=== PATIENT | male | born 1950 | race Caucasian/White ===

== ENCOUNTER → 2017-01-04 | Outpatient (CLI) | payer MEDICARE, MEDICAID ==
[~2017-01-04] MED LIST: ASPI-587 PO; ATEN25TA; CATHETER FLUSH 10 ML SYR IV PRN; IOHEXOL 350 MG/ML 150 ML (OMNIPAQUE 350) VIAL IV ONE; MULT-608 PO; NS 100 ML (IVPB) BAG IV ONE; SIMV40TA4 PO
[2017-01-04 07:56] LABS: ALANINE AMINOTRANSFERASE 21 U/L (0-55); ALBUMIN 3.9 GM/DL (3.2-4.5); ANION GAP 9 MMOL/L (5-14); ASPARTATE AMINO TRANSFERASE 25 U/L (5-34); BILIRUBIN,TOTAL 1.9 MG/DL (0.1-1.0); BLOOD UREA NITROGEN 24 MG/DL (7-18); BUN/CREATININE RATIO 26; CALCIUM 9.1 MG/DL (8.5-10.1); CARBON DIOXIDE 29 MMOL/L (21-32); CHLORIDE 103 MMOL/L (98-107); CHOLESTEROL 154 MG/DL (< 200); CREATININE SERUM 0.94 MG/DL (0.60-1.30); DIRECT LDL 93 MG/DL (1-129); GFR ESTIMATED > 60; GLUCOSE 92 MG/DL (70-105); POTASSIUM 4.2 MMOL/L (3.6-5.0); SODIUM 141 MMOL/L (135-145); TOTAL PROTEIN 6.6 GM/DL (6.4-8.2); TRIGLYCERIDES 61 MG/DL (<150); VLDL CHOLESTEROL 12 MG/DL (5-40)
--- NOTE | 2017-01-04 13:44 | Diagnostic Imaging Report ---
PROCEDURE: CT angiography of the chest with contrast. TECHNIQUE: Multiple contiguous axial images were obtained through the chest after uneventful bolus administration of intravenous contrast. Reconstructed CTA MIP acquisitions were also performed. INDICATION: Marfan's syndrome, thoracic aortic aneurysm. FINDINGS: The previous CTA chest exam of 07/16/2015 suggested that the aortic root was mildly dilated measuring 4.5 cm in maximum dimension measured perpendicular to the long axis of the aortic root. On this exam, the aortic root measures 4.4 cm. The descending thoracic aorta is normal in caliber, and there is no sign of an injury to the aorta. There is no defect within the pulmonary arteries to indicate a pulmonary embolus either. The heart size is within normal limits and stable when compared to the prior exam. The previous exam did note a 5 mm noncalcified nodule in the left lower lobe. That finding is again visualized and does not seem to have changed significantly (image [id number]). The lungs are otherwise clear. There is no sign of failure, pneumonia, or of a pleural effusion to suggest an acute abnormality. There are mild chronic changes involving the lungs including scar formation in both lung apices. There is no mediastinal or hilar adenopathy. The thyroid gland is unremarkable. The sections through the upper abdomen again show that the appearance of the liver suggests fatty metamorphosis. There are a few small low-density areas within the liver. The largest of these is in the dome of the right lobe of the liver and measures approximately 0.9 x 0.9 cm. This area of low density does seem more prominent than noted on the previous CTA chest exam of 06/09/2014. I suspect that this is a benign nodule, but I would recommend that ultrasound of the liver be performed for further study. The spleen, kidneys, aorta, and inferior vena cava are unremarkable for an acute abnormality. The bone windows again show that there is dextroscoliosis of the lower thoracic spine. There is no acute bony abnormality appreciated. IMPRESSION: 1. The aortic root remains slightly dilated but essentially no different than on the prior exam. 2. There is no acute cardiopulmonary abnormality identified. In particular, there is no sign of a dissection of the aorta or of a pulmonary embolus. 3. The small nodule in the left lung base seen previously is again evident and no different. 4. The low-density area in the right lobe of the liver is most likely a benign nodule. Ultrasound would be recommend for further evaluation. Dictated by: Dictated on workstation # [id number]
== END ==
LOC: RAD 07:21
PROVIDERS: ATTEND Physician Assistant
DX: I25.10 Atherosclerotic heart disease of native coronary artery without angina pectoris (principal); I50.1 Left ventricular failure, unspecified; I71.2 Thoracic aortic aneurysm, without rupture; Q87.410 Marfan syndrome with aortic dilation
CPT/HCPCS: 36415; 71275; 80053; 80061; 82565; 84520

== ENCOUNTER → 2017-07-28 | Outpatient (CLI) | payer MEDICARE, MEDICAID ==
[~2017-07-28] MED LIST changes: -CATHETER FLUSH 10 ML SYR IV PRN; -IOHEXOL 350 MG/ML 150 ML (OMNIPAQUE 350) VIAL IV ONE; -NS 100 ML (IVPB) BAG IV ONE
== END ==
LOC: CARD 09:06
PROVIDERS: ATTEND Physician Assistant
DX: I25.10 Atherosclerotic heart disease of native coronary artery without angina pectoris (principal); E78.5 Hyperlipidemia, unspecified; Q87.410 Marfan syndrome with aortic dilation; I71.2 Thoracic aortic aneurysm, without rupture
CPT/HCPCS: 93306

== ENCOUNTER → 2018-07-13 | Outpatient (CLI) | payer MEDICARE, MEDICAID ==
[2018-07-13 07:37] LABS: CHOLESTEROL 150 MG/DL (< 200); HDL CHOLESTEROL 49 MG/DL (40-60); TRIGLYCERIDES 79 MG/DL (<150); VLDL CHOLESTEROL 16 MG/DL (5-40)
[2018-07-13 11:31] LABS: ALANINE AMINOTRANSFERASE 17 U/L (0-55); ALBUMIN 4.1 GM/DL (3.2-4.5); ALKALINE PHOSPHATASE 58 U/L (40-136); BILIRUBIN,TOTAL 1.6 MG/DL (0.1-1.0); BUN/CREATININE RATIO 20; CALCIUM 9.5 MG/DL (8.5-10.1); CARBON DIOXIDE 22 MMOL/L (21-32); CHLORIDE 107 MMOL/L (98-107); CREATININE SERUM 0.94 MG/DL (0.60-1.30); GFR ESTIMATED > 60; GLUCOSE 91 MG/DL (70-105); POTASSIUM 4.1 MMOL/L (3.6-5.0); SODIUM 140 MMOL/L (135-145); TOTAL PROTEIN 6.7 GM/DL (6.4-8.2)
== END ==
LOC: LAB 07:06
PROVIDERS: ATTEND Internal Medicine Cardiovascular Disease
DX: I25.10 Atherosclerotic heart disease of native coronary artery without angina pectoris (principal); I50.9 Heart failure, unspecified; E78.5 Hyperlipidemia, unspecified; I71.2 Thoracic aortic aneurysm, without rupture; Q87.410 Marfan syndrome with aortic dilation
CPT/HCPCS: 36415; 80053; 80061

== ENCOUNTER → 2019-07-19 | Outpatient (CLI) | payer MEDICARE, MEDICAID ==
[~2019-07-19] MED LIST changes: -ATEN25TA; +ATEN25TA PO; +CETI10TA21 PO; +CHOL100045 PO
[2019-07-19 07:56] LABS: ALANINE AMINOTRANSFERASE 14 U/L (0-55); ALBUMIN 4.1 GM/DL (3.2-4.5); ALKALINE PHOSPHATASE 59 U/L (40-136); BILIRUBIN,TOTAL 1.8 MG/DL (0.1-1.0); BUN/CREATININE RATIO 15; CALCIUM 9.3 MG/DL (8.5-10.1); CARBON DIOXIDE 29 MMOL/L (21-32); CHLORIDE 103 MMOL/L (98-107); CHOLESTEROL 140 MG/DL (< 200); GFR ESTIMATED > 60; GLUCOSE 79 MG/DL (70-105); HDL CHOLESTEROL 51 MG/DL (40-60); POTASSIUM 4.2 MMOL/L (3.6-5.0); SODIUM 141 MMOL/L (135-145); TOTAL PROTEIN 6.5 GM/DL (6.4-8.2); TRIGLYCERIDES 64 MG/DL (<150); VLDL CHOLESTEROL 13 MG/DL (5-40)
== END ==
LOC: LAB 07:28
PROVIDERS: ATTEND Physician Assistant
DX: I25.10 Atherosclerotic heart disease of native coronary artery without angina pectoris (principal); E78.5 Hyperlipidemia, unspecified
CPT/HCPCS: 36415; 80053; 80061

== ENCOUNTER 2019-09-06 07:10 | Outpatient (CLI) | payer MEDICARE, MEDICAID ==
[~2019-09-06] VITALS: Ht 194 cm; Wt 61.0 kg
[2019-09-06] MEDS ORDERED: SIMV40TA25 PO (11:01)
[2019-09-06] MEDS ORDERED: ASPI-999 PO (11:01)
[2019-09-06] MEDS ORDERED: CHOL500049 PO (11:01)
[2019-09-06] MEDS ORDERED: DOCU100T7 PO (11:01)
[2019-09-06] MEDS ORDERED: MTP25TSR PO (11:14)
== END 2019-09-06 15:14 ==
LOC: PREOP 07:10 → EDSTATUS 10:00 → PREOP 15:14
PROVIDERS: ATTEND Surgery
DX: Z01.818 Encounter for other preprocedural examination (principal); Z11.59 Encounter for screening for other viral diseases
CPT/HCPCS: 87635

== ENCOUNTER 2019-09-11 07:06 | Day surgery (SDC) | payer MEDICARE, MEDICAID ==
[~2019-09-11] VITALS: Ht 194 cm; Wt 61.0 kg
[2019-09-11] VITALS (11 sets, daily range): BP systolic 101–126; BP diastolic 58–79
[~2019-09-11 07:06] MED LIST changes: +ASPI-999 PO; +CHOL500049 PO; +DOCU100T7 PO; +MTP25TSR PO; +SIMV40TA25 PO
[2019-09-11] MEDS ORDERED: ceFAZolin 2 GM IV Premixed 50 ML IV ONE (07:45)
[2019-09-11] MEDS ORDERED: CATHETER FLUSH 10 ML SYR IV PRN (08:00)
[2019-09-11] MEDS ORDERED: BUP/EPI 0.5% 1:200,000 (SENSORCAINE) 30 ML VIAL ONE ×2 (08:07→09:25)
[2019-09-11] MEDS: LACTATED RINGERS 1,000 ML IV PRN ×2 (08:18→09:34)
[2019-09-11] MEDS ORDERED: SEVOFLURANE (ULTANE) 15 ML INHAL SOLN ONE ×5 (08:38→10:23)
[2019-09-11] MEDS ORDERED: ONDANSETRON 4 MG/2 ML (SDV) Z0FRAN ONE (08:38)
[2019-09-11] MEDS ORDERED: proPOfol 200 MG/20 ML (DIPRIVAN) VIAL IV ONE (08:38)
[2019-09-11] MEDS ORDERED: LIDOCAINE PF 2% 5 ML (XYLOCAINE) VIAL ONE (08:38)
[2019-09-11] MEDS ORDERED: ROCURONIUM 10 MG/ML 5 ML SYRINGE IV ONE (08:38)
[2019-09-11] MEDS ORDERED: MIDAZOLAM 2 MG/2 ML (VERSED) VIAL ONE (08:38)
[2019-09-11] MEDS ORDERED: DEXAMETHASONE 10 MG/ML (DECADRON) 1 ML VIAL ONE (08:38)
[2019-09-11] MEDS ORDERED: fentaNYL INJECTION 100 MCG/2 ML AMP ONE (08:39)
--- NOTE | 2019-09-11 10:16 | Progress Note-Post Operative ---
Post-Operative Progess Note Surgeon (s)/Supervisor Plate Pasting (s) Surgeon FROILAN CARTER DO Supervisor Plate Pasting: Ric Pre-Operative Diagnosis BILATERAL INGUINAL HERNIAS Post-Operative Diagnosis Same plus Left cord lipoma Procedure & Operative Findings Date of Procedure 09/11/19 Procedure Performed/Findings PROCEDURE: 1. Open [bilateral] direct inguinal hernia repair. 2. Excision of Left cord lipoma COMPLICATIONS: None. INDICATIONS: The patient is a 69 , male with Bilateral inguinal hernias. He understands risks and benefits of procedure and wished to proceed with procedure. Consent was signed in the chart. DESCRIPTION OF PROCEDURE: The patient was taken to the operating suite, was prepped and draped in sterile fashion. Surgical pause was performed. Local anesthetic was infiltrated to perform ilio-inguinal nerve blocks (bilaterally), a suprapubic block and then infiltrated in left and right inguinal area where incision would be made. Next used a #15 blade scalpel was used to make a skin incision in the Left lower quadrant. Cautery was used to dissect down the external oblique, which was then infiltrated with local and opened down through the external ring with cautery. The spermatic cord was then dissected around. Claunch drain was placed around it and was retracted out of the way in the lateral direction. No indirect hernia present; there was however a direct defect present. Also found a cord lipoma which was carefully taken off with bovie electrocautery. Carefully pealed the sac off the cord and contents were reduced. The transversalis fascia was then sutured to the shelving edge of Poupard's ligament using 2-0 Vicryl figure of eight suture and then another single interrupted suture. A ProGrip mesh was then cut to size, which was then secured to Rashaun's ligament and then incorporated around the spermatic cord in the usual fashion and placed under the external oblique. The wound was then irrigated with copious amounts of irrigation. The external oblique was then closed using 3-0 Vicryl in running fashion recreating the external ring. The subcutaneous tissue was then reapproximated with 3-0 Vicryl and the skin was then closed using 4-0 Monocryl in a running subcuticular fashion. The exact same procedure was then performed on the right side; again a Direct hernia was found but no cord lipoma. Once this side was done, we then washed the area and dried it. Skin Affix was placed over the incisions. The patient tolerated procedure well without any complications and was taken to the recovery room in stable condition. Sponge, instrument and needle count were correct at the end of the case. Dr. Larios helped in this case making incisions, closing incisions, identifying anatomy and helping get anatomy out of the way. Anesthesia Type GET Estimated Blood Loss Estimated blood loss (mL): scant Specimens/Packing Specimens Removed Left cord lipoma FROILAN CARTER DO September 11, 2019 10:16
[2019-09-11] MEDS ORDERED: HYDR-4226 PO (10:18)
--- NOTE | 2019-09-11 10:19 | Discharge Inst-Surgical ---
Discharge Inst-Surgical Depart Medication/Instructions New, Converted or Re-Newed RX: RX Given to Pt/Family Patient Instructions Follow up Appt: Make appointment for 1 week. [phone] Instructions: No lifting greater than 20 pounds. No strenuous activity. May shower in 24 hours, no tub bath or soaking. Use incentive spirometer at home as directed. No Smoking Skin/Wound Care: May remove bandages in am. You need to leave the Dermabond on incision it will fall off on it's own. Symptoms to Report: Appetite Changes, Extremity Discoloration, Numbness/Tingling, Swelling Increased, Bleeding Excessive, Eyesight Changes, Pain Increased, Urine Color Change, Constipation(Persistent), Fever over 101 degree F, Pain/Pressure in chest, Urinating Difficulty, Cough Up/Vomit Blood, Heart Beat Irreg/Pounding, Pain/Pressure in jaw, Cramps in feet or legs, Lightheadedness, Pain/Pressure in shoulder, Diarrhea(Persistent), Memory Changes Suddenly, Questions/Concerns, Weight gain consecutive days, Dizziness/Fainting, Nausea/Vomiting, Shortness of Breath, Weight gain over 2 pounds If questions or concerns contact your physician Or seek help at emergency department. Activity Activity as Tolerated: Yes Activity Instructions: Avoid Stress to Incision Driving Instructions: No Driving/Refer to Dr. Aguilar Discharge Diet: No Restrictions Diet After 24 Hours: Clear Liquid if Nauseous If Any Problems/Questions/Issu: Contact Your Physician, Go to Emergency Room Skin/Wound Care Infection Signs and Symptoms: Increased Redness, Foul Odor of Wound, Increased Drainage, Skin Itchy or Has a Rash, Increased Swelling, Temperature Above 101 F Bathing Instructions: Shower Stitches/Merly/Dermabond Dis: Dermabond Ice Pack: Ice On and Off Site FROILAN CARTER DO September 11, 2019 10:19
--- NOTE | 2019-09-11 11:15 | NUR ---
TO AMB SURG FROM PAR PER CART. ALERT, DENIES COMPLAINTS. SKIN AFFIX INTACT TO X2 LOWER ABD SURGICAL INCISIONS, ICE PACK ON. PO FLUIDS PROVIDED.
[2019-09-11] MEDS ORDERED: HYDROcodone/APAP 5 MG/325 MG (LORTAB) TAB ONE (11:43)
[2019-09-11] MEDS ORDERED: HYDROcodone/APAP 5 MG/325 MG (LORTAB) TAB PO ONE (11:45)
--- NOTE | 2019-09-11 11:53 | NUR ---
REPORTS SURGICAL SITE "STARTING TO HURT A LITTLE". TAKING PO FLUIDS AND CRACKERS WITHOUT PROBLEM. LORTAB 5/325 MG, ONE TAB, GIVEN PO.
--- NOTE | 2019-09-11 12:14 | Anesthesia-General Post-Op ---
General Patient Condition Mental Status/LOC: Same as Preop Cardiovascular: Satisfactory Nausea/Vomiting: Absent Respiratory: Satisfactory Pain: Controlled Complications: Absent Post Op Complications Complications None Follow Up Care/Instructions Patient Instructions None needed. Anesthesia/Patient Condition Patient Condition Patient is doing well, no complaints, stable vital signs, no apparent adverse anesthesia problems. No complications reported per nursing. SHRUTHI BARRERA CRNA September 11, 2019 12:14
--- NOTE | 2019-09-11 12:45 | NUR ---
RATES SURGICAL SITE PAIN 1. NO CHANGE IN SITE ASSESSMENTS. ALERT, CHEERFUL. REQUESTING DISMISSAL.
== END 2019-09-11 12:45 | disposition home or self-care (01) ==
LOC: SDC 07:06
PROVIDERS: ATTEND Surgery
DX: K40.20 Bilateral inguinal hernia, without obstruction or gangrene, not specified as recurrent (principal); D17.6 Benign lipomatous neoplasm of spermatic cord; I25.10 Atherosclerotic heart disease of native coronary artery without angina pectoris; I11.0 Hypertensive heart disease with heart failure; I50.9 Heart failure, unspecified; F84.0 Autistic disorder; Q87.40 Marfan syndrome, unspecified; E78.5 Hyperlipidemia, unspecified; Z79.899 Other long term (current) drug therapy; Z11.2 Encounter for screening for other bacterial diseases
CPT/HCPCS: 87081; 94664

== ENCOUNTER 2022-08-22 18:40 | Observation (INO) | payer MEDICARE, MEDICAID ==
[~2022-08-22] VITALS: Ht 187 cm; Wt 63.0 kg
[~2022-08-22 18:40] MED LIST changes: -CETI10TA21 PO; +CETI10TA49 PO; +HYDR-4226 PO
--- NOTE | 2022-08-22 19:14 | ED Abdominal Pain ---
General Chief Complaint: Abdominal/GI Problems Stated Complaint: ABDOMINAL PAIN Nursing Triage Note: pt reports n/v/c and decreased appetite x 3 days and two hernias that popped out this morning. pt had surgery on hernias 3 years ago and has no issues since. Source of Information: Patient Exam Limitations: No Limitations (ISABEL GARCIA) History of Present Illness Date Seen by Provider: Aug 22, 2022 Time Seen by Provider: 19:13 Initial Comments Patient is a 72-year-old male who is autistic with Marfan syndrome who presents ED with lower abdominal pain. Abdominal pain since Monday. Dull achy pain constant. History of inguinal hernia repair by Dr. Carter general surgery in 2019. Since Monday patient has had intermittent vomiting. Has had no bowel movement since last Monday. Currently on a low oral laxative that he takes daily. Increase his oral laxative without much improvement. Decreased appetite. Pressure difficulty with urination. Does have a scheduled follow-up with Dr. Carter tomorrow. Denies fever, chills, chest pain, cough or shortness of breath. (ISABEL GARCIA) Allergies and Home Medications Allergies Coded Allergies: No Known Drug Allergies (Unverified , 09/06/19) Patient Home Medication List Home Medication List Reviewed: Yes (ISABEL GARCIA) Cetirizine HCl (Zyrtec) 10 Mg Tablet, 10 MG PO DAILY, (Reported) Entered as Reported by: ZIGGY ACUNA on 10/03/18 0945 Last Action: Reviewed Cholecalciferol (Vitamin D3) (Vitamin D3) 25 Mcg (1000 Unit) Tablet, 25 MCG PO DAILY, (Reported) Entered as Reported by: MERCEDES DELGADO on 08/23/22 1131 Last Action: Reviewed Docusate Sodium (Stool Softener) 100 Mg Tablet, 200 MG PO HS, (Reported) Entered as Reported by: YONATAN MENDES on 09/06/19 1101 Last Action: Reviewed Hydrocodone/Acetaminophen (Hydrocodone-Acetamin 5-325 mg) 5 Mg-325 Mg Tablet, 1 TAB PO Q8H PRN for PAIN-MODERATE (5-7) Prescribed by: FROILAN CARTER on 08/23/221948 Metoprolol Succinate (Metoprolol Succinate) 25 Mg Tab.er.24h, 25 MG PO DAILY, (Reported) Entered as Reported by: YONATAN MENDES on 09/06/19 1114 Last Action: Reviewed Ondansetron HCl (Ondansetron HCl) 4 Mg Tablet, 4 MG PO Q8H PRN for NAUSEA/VOMITING-2ND LINE, (Reported) Entered as Reported by: MERCEDES DELGADO on 08/23/22 1131 Last Action: Reviewed Simvastatin (Simvastatin) 40 Mg Tablet, 40 MG PO HS, (Reported) Entered as Reported by: YONATAN MENDES on 09/06/19 1101 Last Action: Reviewed Discontinued Medications Aspirin (Aspirin) 81 Mg Tab.chew, 81 MG PO DAILY, (Reported) Entered as Reported by: YONATAN MENDES on 09/06/19 1101 Last Action: Reviewed Cholecalciferol (Vitamin D3) (Vitamin D3) 1,250 Mcg Capsule, 1,250 MCG PO DAILY, (Reported) Discontinued Reason: Prescription changed Entered as Reported by: YONATAN MENDES on 09/06/19 1101 Hydrocodone/Acetaminophen (Hydrocodone/Acetaminophen 5 MG/325 MG TAB) 1 Each Tablet, 1 TAB PO Q6H Discontinued Reason: No Longer Taking Prescribed by: FROILAN CARTER on 09/11/19 1018 Last Action: Discontinued Review of Systems Review of Systems Constitutional: No chills, No diaphoresis, No fever, No malaise EENTM: No Eye Pain, No Mouth Pain, No Mouth Swelling Cardiovascular: Denies Chest Pain Gastrointestinal: Abdominal Pain, Constipated, Nausea, Vomiting Genitourinary: Denies Burning, Denies Discharge Musculoskeletal: No back pain, No joint pain Skin: No change in color, No change in hair/nails Psychiatric/Neurological: Denies Anxiety, Denies Depressed (ISABEL GARCIA) All Other Systems Reviewed Negative Unless Noted: Yes (ISABEL GARCIA) Past Zswwcqw-Abjupr-Kupeyy Hx Patient Social History Tobacco Use?: No Substance use?: No Alcohol Use?: No Pt feels they are or have been: No (ISABEL GARCIA) Immunizations Up To Date Influenza Vaccine Up-to-Date: No; Not Current (ISABEL GARCIA) Seasonal Allergies Seasonal Allergies: Yes (ISABEL GARCIA) Past Medical History Surgeries: No Respiratory: No Currently Using CPAP: No Currently Using BIPAP: No Cardiac: Yes (CLEAN HEART CATH-2019) Aneurysm, High Cholesterol, Hypertension Neurological: No Sexually Transmitted Disease: No HIV/AIDS: No Genitourinary: No Gastrointestinal: Yes (BILAT INGUINAL HERNIAS) Chronic Constipation Musculoskeletal: No Endocrine: Yes (MARFAN'S SYNDROME) HEENT: Yes (GLASSES, DENTURES) Loss of Vision: Denies Hearing Impairment: Denies Cancer: No Psychosocial: Yes (AUTISTIC) Integumentary: Yes (DRY PATCHES) Blood Disorders: No Adverse Reaction/Blood Tranf: No (N/A) (ISABEL GARCIA) Physical Exam Vital Signs Vital Signs - First Documented 08/22/22 19:09 Temp 37.2 Pulse 57 Resp 18 B/P (MAP) 166/102 (123) Pulse Ox 96 O2 Delivery Room Air (INGRIDTYESHA Dormify DO) Vital Signs Capillary Refill : (ISABEL GARCIA) Height/Weight/BMI Height: 6'0.00" Weight: 153lbs. 0.0oz. 69.060867ms; 18.00 BMI Method:Estimated General Appearance: WD/WN, no apparent distress HEENT: PERRL/EOMI, normal ENT inspection, TMs normal, pharynx normal Neck: non-tender, full range of motion, supple Respiratory: chest non-tender, lungs clear, normal breath sounds, no respiratory distress, no accessory muscle use Cardiovascular: regular rate, rhythm, no edema, no gallop Gastrointestinal: normal bowel sounds, soft, no organomegaly, no pulsatile mass, tenderness (Lateral large inguinal hernias non reducible) Extremities: normal range of motion, non-tender, normal inspection, no pedal edema Back: normal inspection, no CVA tenderness, no vertebral tenderness Neurologic/Psychiatric: windscreen fitter II-XII nml as tested, no motor/sensory deficits, alert, normal mood/affect, oriented x 3 (ISABEL GARCIA) Focused Exam Lactate Level 08/22/22 19:15: Lactic Acid Level 1.16 (INGRIDTYESHA Dormify DO) Lactic Acid Level Laboratory Tests Test 08/22/22 19:15 Lactic Acid Level 1.16 MMOL/L (0.50-2.00) (TYESHA QUINTERO DO) Progress/Results/Core Measures Results/Orders Lab Results Laboratory Tests Test 08/22/22 19:15 08/22/22 19:26 Range/Units White Blood Count 6.9 4.3-11.0 10^3/uL Red Blood Count 5.50 4.30-5.52 10^6/uL Hemoglobin 16.6 13.3-17.7 g/dL Hematocrit 48 40-54 % Mean Corpuscular Volume 88 80-99 fL Mean Corpuscular Hemoglobin 30 25-34 pg Mean Corpuscular Hemoglobin Concent 35 32-36 g/dL Red Cell Distribution Width 12.9 10.0-14.5 % Platelet Count 181 130-400 10^3/uL Mean Platelet Volume 10.4 9.0-12.2 fL Immature Granulocyte % (Auto) 0 % Neutrophils (%) (Auto) 59 42-75 % Lymphocytes (%) (Auto) 23 12-44 % Monocytes (%) (Auto) 16 H 0-12 % Eosinophils (%) (Auto) 2 0-10 % Basophils (%) (Auto) 1 0-10 % Neutrophils # (Auto) 4.0 1.8-7.8 10^3/uL Lymphocytes # (Auto) 1.6 1.0-4.0 10^3/uL Monocytes # (Auto) 1.1 H 0.0-1.0 10^3/uL Eosinophils # (Auto) 0.1 0.0-0.3 10^3/uL Basophils # (Auto) 0.0 0.0-0.1 10^3/uL Immature Granulocyte # (Auto) 0.0 0.0-0.1 10^3/uL Sodium Level 135 135-145 MMOL/L Potassium Level 4.0 3.6-5.0 MMOL/L Chloride Level 96 L 98-107 MMOL/L Carbon Dioxide Level 27 21-32 MMOL/L Anion Gap 12 5-14 MMOL/L Blood Urea Nitrogen 44 H 7-18 MG/DL Creatinine 1.11 0.60-1.30 MG/DL Estimat Glomerular Filtration Rate 71 BUN/Creatinine Ratio 40 Glucose Level 94 70-105 MG/DL Lactic Acid Level 1.16 0.50-2.00 MMOL/L Calcium Level 8.9 8.5-10.1 MG/DL Corrected Calcium 8.9 8.5-10.1 MG/DL Total Bilirubin 2.1 H 0.1-1.0 MG/DL Aspartate Amino Transf (AST/SGOT) 19 5-34 U/L Alanine Aminotransferase (ALT/SGPT) 18 0-55 U/L Alkaline Phosphatase 50 40-136 U/L Total Protein 6.7 6.4-8.2 GM/DL Albumin 4.0 3.2-4.5 GM/DL Urine Color ORANGE Urine Clarity CLEAR Urine pH 6.0 5-9 Urine Specific Hanna 1.020 1.016-1.022 Urine Protein TRACE H NEGATIVE Urine Glucose (UA) NEGATIVE NEGATIVE Urine Ketones 2+ H NEGATIVE Urine Nitrite NEGATIVE NEGATIVE Urine Bilirubin 1+ H NEGATIVE Urine Urobilinogen 2.0 < = 1.0 MG/DL Urine Leukocyte Esterase NEGATIVE NEGATIVE Urine RBC (Auto) TRACE-I H NEGATIVE Urine RBC 0-2 /HPF Urine WBC NONE /HPF Urine Squamous Epithelial Cells RARE /HPF Urine Crystals NONE /LPF Urine Bacteria TRACE /HPF Urine Casts PRESENT /LPF Urine Hyaline Casts RARE /LPF Urine Mucus SMALL H /LPF Urine Culture Indicated NO (TYESHA QUINTERO DO) Vital Signs/I&O 08/22/22 08/22/22 19:09 21:41 Temp 37.2 Pulse 57 79 Resp 18 18 B/P (MAP) 166/102 (123) 123/72 Pulse Ox 96 98 O2 Delivery Room Air Room Air (TYESHA QUINTERO DO) Blood Pressure Mean: 123 Departure Communication (PCP) Patient is a 72-year-old male presents ED with bilateral inguinal groin pain. Differential diagnosis of incarcerated inguinal hernia, small bowel obstruction, strangulated hernia. Reviewed previous ER visits, H&P, surgical history. History of bilateral open inguinal hernia repairs performed by Dr. Carter 2019. Patient has had no bowel movement since Monday. Vomiting since Monday and has been taken Zofran. Decreased appetite. Difficulty urinating. inguinal pressure and pain. On exam large bilateral inguinal hernias with tenderness. No skin color changes. not able to reduce. CBC, CMP and lactic acid was ordered. Lab work was otherwise unremarkable. Normal lactic acid. Refused anything for pain. CT abdomen and pelvis shows bilateral incarcerated hernias with small bowel obstruction. Do not suspect strangulation at this time. Normal lactic acid, white blood count and without evidence of strangulation on CT scan. Patient was given a liter of fluid. Patient was discussed with patient's ge neral surgeon Dr. Carter who recommends n.p.o. and will likely perform surgery in the morning. He is not having significant amount of pain at this time. Provided information to his sister who is his power of employment law attorney Tyesha Contreras. She was here at bedside and agree to proceed. (ISABEL GARCIA) Impression Primary Impression: Bilateral inguinal hernia Disposition: ADMITTED INPATIENT Condition: Stable Admissions Decision to Admit Reason: Admit from ER (General) Decision to Admit/Date: Aug 22, 2022 Time/Decision to Admit Time: 20:45 (ISABEL GARCIA) Departure-Patient Inst. Decision time for Depature: 20:45 (ISABEL GARCIA) Referrals: [facility] [place] (PCP) Primary Care Physician SHEILA WATKINS (Family) Primary Care Physician Scripts Hydrocodone/Acetaminophen (Hydrocodone-Acetamin 5-325 mg) 5 Mg-325 Mg Tablet 1 TAB PO Q8H PRN for PAIN-MODERATE (5-7), #20 TAB Prov: FROILAN CARTER DO 08/23/22 ATTENDING PHYSICIAN NOTE: I WAS PHYSICALLY PRESENT ER PHYSICIAN, BUT I WAS NOT INVOLVED IN ANY DECISION MAKING OR ANY CARE OF THIS PATIENT AND I AM NOT COLLABORATING PHYSICIAN. (YTESHA QUINTERO DO) ISABEL GARCIA Aug 22, 2022 19:14 TYESHA QUINTERO DO Aug 25, 2022 01:38
[2022-08-22 19:24] LABS: BASOPHILS % (AUTO) 1 % (0-10); EOSINOPHILS # (AUTO) 0.1 10^3/uL (0.0-0.3); EOSINOPHILS % (AUTO) 2 % (0-10); HEMATOCRIT 48 % (40-54); HEMOGLOBIN 16.6 g/dL (13.3-17.7); LYMPHOCYTES # (AUTO) 1.6 10^3/uL (1.0-4.0); LYMPHOCYTES % (AUTO) 23 % (12-44); MEAN CORPUSCULAR HEMOGLOBIN 30 pg (25-34); MEAN CORPUSCULAR HGB CONC 35 g/dL (32-36); MEAN CORPUSCULAR VOLUME 88 fL (80-99); MEAN PLATELET VOLUME 10.4 fL (9.0-12.2); MONOCYTES # (AUTO) 1.1 10^3/uL (0.0-1.0); MONOCYTES % (AUTO) 16 % (0-12); NEUTROPHILS % (AUTO) 59 % (42-75); PLATELET COUNT 181 10^3/uL (130-400); WHITE BLOOD COUNT 6.9 10^3/uL (4.3-11.0)
[2022-08-22 19:33] LABS: CLARITY,URINE CLEAR; COLOR,URINE ORANGE; GLUCOSE, URINE (UA) NEGATIVE (NEGATIVE); KETONES,URINE 2+ (NEGATIVE); LEUKOCYTE ESTERASE ,URINE NEGATIVE (NEGATIVE); NITRITE,URINE NEGATIVE (NEGATIVE); PROTEIN,URINE TRACE (NEGATIVE)
[2022-08-22 19:39] LABS: CALCIUM 8.9 MG/DL (8.5-10.1)
[2022-08-22 19:40] LABS: TOTAL PROTEIN 6.7 GM/DL (6.4-8.2)
[2022-08-22 19:42] LABS: BILIRUBIN,TOTAL 2.1 MG/DL (0.1-1.0)
[2022-08-22 19:44] LABS: CREATININE SERUM 1.11 MG/DL (0.60-1.30)
[2022-08-22 19:48] LABS: BACTERIA,URINE TRACE /HPF; RBC,URINE 0-2 /HPF; SQUAMOUS EPITHELIAL CELL,UR RARE /HPF
[2022-08-22 19:49] LABS: HYALINE CASTS, URINE RARE /LPF
[2022-08-22 19:54] LABS: BILIRUBIN,URINE 1+ (NEGATIVE)
[2022-08-22] MEDS ORDERED: NS 100 ML (IVPB) BAG IV ONE (20:00)
[2022-08-22] MEDS ORDERED: HOLD METFORMIN - RECEIVED CONTRAST 20 ML VIAL IV SCH (20:00)
[2022-08-22] MEDS ORDERED: IOHEXOL 350 MG/ML 100 ML (OMNIPAQUE 350) VIAL IV ONE (20:00)
--- NOTE | 2022-08-22 20:28 | Diagnostic Imaging Report ---
PROCEDURE: CT abdomen and pelvis with contrast. TECHNIQUE: Multiple contiguous axial images were obtained through the abdomen and pelvis after administration of intravenous contrast. Auto Exposure Controls were utilized during the CT exam to meet ALARA standards for radiation dose reduction. All CT scans use one or more of the following dose optimizing techniques: automated exposure control, MA and/or KvP adjustment based on patient size and exam type or iterative reconstruction. INDICATION: Abdominal pain, new hernias. FINDINGS: The lung bases are clear. Liver appears normal. Gallbladder appears normal. Pancreas is normal. Spleen is unremarkable. Adrenals appear normal. Kidneys are unremarkable. There are bilateral inguinal hernias. There are dilated small bowel loops in the left inguinal hernia suggesting obstruction. Small bowel loops in the right inguinal hernia are decompressed. There is colonic diverticulosis. Urinary bladder is unremarkable. There is no intraperitoneal free air or free fluid. IMPRESSION: Incarcerated bowel loops and bilateral inguinal hernias with evidence of obstruction in the small bowel and the left inguinal hernia. Dictated by: Dictated on workstation # [id number]
[2022-08-22 22:07] VITALS: BP 136/73
[2022-08-22] MEDS ORDERED: fentaNYL INJ 100 MCG/2 ML AMP IV PRN (22:30)
[2022-08-22] MEDS ORDERED: ONDANSETRON 4 MG/2 ML (SDV) Z0FRAN IV PRN (22:30)
[2022-08-22 23:04] VITALS: BP 119/59
[2022-08-23] VITALS (13 sets, daily range): BP systolic 118–160; BP diastolic 63–100
[2022-08-23] MEDS: NS IV 1000 ML 1,000 ML IV SCH ×2 (00:01→10:01)
[2022-08-23 06:01] LABS: BASOPHILS # (AUTO) 0.1 10^3/uL (0.0-0.1); BASOPHILS % (AUTO) 1 % (0-10); EOSINOPHILS # (AUTO) 0.1 10^3/uL (0.0-0.3); EOSINOPHILS % (AUTO) 1 % (0-10); HEMATOCRIT 44 % (40-54); LYMPHOCYTES # (AUTO) 1.4 10^3/uL (1.0-4.0); LYMPHOCYTES % (AUTO) 20 % (12-44); MEAN CORPUSCULAR HEMOGLOBIN 30 pg (25-34); MEAN CORPUSCULAR HGB CONC 34 g/dL (32-36); MEAN CORPUSCULAR VOLUME 88 fL (80-99); MEAN PLATELET VOLUME 10.7 fL (9.0-12.2); MONOCYTES % (AUTO) 14 % (0-12); NEUTROPHILS # (AUTO) 4.5 10^3/uL (1.8-7.8); NEUTROPHILS % (AUTO) 64 % (42-75); PLATELET COUNT 156 10^3/uL (130-400); WHITE BLOOD COUNT 7.1 10^3/uL (4.3-11.0)
[2022-08-23 06:57] LABS: POTASSIUM 3.7 MMOL/L (3.6-5.0)
[2022-08-23 06:58] LABS: CALCIUM 8.3 MG/DL (8.5-10.1); CREATININE SERUM 0.97 MG/DL (0.60-1.30)
--- NOTE | 2022-08-23 08:22 | Consultation - Surgery ---
DONATO SIMMONS 08/23/22 0822: History of Present Illness History of Present Illness Patient Consulted On(mariely/time) 08/23/22 08:15 Date Seen by Provider: Aug 23, 2022 Time Seen by Provider: 07:30 Reason for Visit: b/l inguinal herniation History of Present Illness Juan is a 72yo male with autism and Marfan Syndrome being consulted today for possible double hernia repair, he has seen us in 2019 for a double hernia repair. Pt was seen with his family and they asked about how this could have happened and if the mesh was bad and had been recalled, everyone was very pleasant and agreeable to having a repair surgery today. He has been NPO since midnight and denies any chest pain, shortness of breath, or lightheadedness. He does report discomfort he said is like a 4/10 on both sides of his scrotum and his lower abdomen quadrants. Allergies and Home Medications Allergies Coded Allergies: No Known Drug Allergies (Unverified , 09/06/19) Patient Home Medication List Aspirin (Aspirin) 81 Mg Tab.chew, 81 MG PO DAILY, (Reported) Entered as Reported by: YONATAN MENDES on 09/06/19 1101 Last Action: Reviewed Cetirizine HCl (Zyrtec) 10 Mg Tablet, 10 MG PO DAILY, (Reported) Entered as Reported by: ZIGGY ACUNA on 10/03/18 0945 Last Action: Reviewed Cholecalciferol (Vitamin D3) (Vitamin D3) 25 Mcg (1000 Unit) Tablet, 25 MCG PO DAILY, (Reported) Entered as Reported by: MERCEDES DELGADO on 08/23/22 1131 Last Action: Reviewed Docusate Sodium (Stool Softener) 100 Mg Tablet, 200 MG PO HS, (Reported) Entered as Reported by: YONATAN MENDES on 09/06/19 1101 Last Action: Reviewed Metoprolol Succinate (Metoprolol Succinate) 25 Mg Tab.er.24h, 25 MG PO DAILY, (Reported) Entered as Reported by: YONATAN MENDES on 09/06/19 1114 Last Action: Reviewed Ondansetron HCl (Ondansetron HCl) 4 Mg Tablet, 4 MG PO Q8H PRN for NAUSEA/VOMITING-2ND LINE, (Reported) Entered as Reported by: MERCEDES DELGADO on 08/23/22 1131 Last Action: Reviewed Simvastatin (Simvastatin) 40 Mg Tablet, 40 MG PO HS, (Reported) Entered as Reported by: YONATAN MENDES on 09/06/19 1101 Last Action: Reviewed Discontinued Medications Cholecalciferol (Vitamin D3) (Vitamin D3) 1,250 Mcg Capsule, 1,250 MCG PO DAILY, (Reported) Discontinued Reason: Prescription changed Entered as Reported by: YONATAN MENDES on 09/06/19 1101 Hydrocodone/Acetaminophen (Hydrocodone/Acetaminophen 5 MG/325 MG TAB) 1 Each Tablet, 1 TAB PO Q6H Discontinued Reason: No Longer Taking Prescribed by: FROILAN CARTER on 09/11/19 1018 Last Action: Discontinued Past Gxiewyu-Nqsxlj-Sezbwi Hx Patient Social History Smoking Status: Never a Smoker 2nd Hand Smoke Exposure: No Recent Hopitalizations: No Alcohol Use?: No Have you traveled recently?: No Immunizations Up To Date Date of Influenza Vaccine: Feb 11, 2019 Seasonal Allergies Seasonal Allergies: Yes Surgeries History of Surgeries: Yes Surgeries: Abdominal (b/l inguinal hernia repair) Respiratory History of Respiratory Disorde: No Cardiovascular History of Cardiac Disorders: Yes (CLEAN HEART CATH-2019) Cardiac Disorders: Aneurysm, High Cholesterol, Hypertension Neurological History of Neurological Disord: No Reproductive System Sexually Transmitted Disease: No HIV/AIDS: No Genitourinary History of Genitourinary Disor: No Gastrointestinal History of Gastrointestinal Di: Yes (BILAT INGUINAL HERNIAS) Gastrointestinal Disorders: Chronic Constipation Musculoskeletal History of Musculoskeletal Dis: No Endocrine History of Endocrine Disorders: Yes (MARFAN'S SYNDROME) HEENT History of HEENT Disorders: Yes (GLASSES, DENTURES) Loss of Vision: Denies Hearing Impairment: Denies Cancer History of Cancer: No Psychosocial History of Psychiatric Problem: Yes (AUTISTIC) Integumentary History of Skin or Integumenta: Yes (DRY PATCHES) Blood Transfusions History of Blood Disorders: No Adverse Reaction to a Blood Tr: No (N/A) Review of Systems-General Constitutional: No chills, No diaphoresis, No dizziness, No fever EENTM: No blurred vision, No hoarseness Respiratory: No cough, No short of breath Cardiovascular: No chest pain, No edema, No palpitations Gastrointestinal: RLQ (pain/pressure), LLQ (pain/pressure), abdominal pain, constipation Genitourinary: dysuria, pain (in scrotal sack b/l) Musculoskeletal: No muscle pain, No muscle weakness Skin: No dryness, No rash Psychiatric/Neurological: Denies Headache, Denies Tremors; Other (Autism ) Physical Exam-General Problems Physical Exam Vital Signs Vital Signs - First Documented 08/22/22 19:09 Temp 37.2 Pulse 57 Resp 18 B/P (MAP) 166/102 (123) Pulse Ox 96 O2 Delivery Room Air Capillary Refill : General Appearance: no apparent distress, thin, other (Marfanoid habitus) HEENT: PERRL/EOMI; No scleral icterus (R), No scleral icterus (L), No photophobia Neck: non-tender, full range of motion, supple Respiratory: chest non-tender, lungs clear, no respiratory distress, no accessory muscle use Cardiovascular: no edema, no murmur, bradycardia, other (mention of aortic anuerism, sees Dr. Costa) Peripheral Pulses: 2+ Dorsalis Pedis (R), 2+ Left Dors-Pedis (L), 2+ Radial Pulses (R), 2+ Radial Pulses (L) Gastrointestinal: soft, no pulsatile mass; No distended, No guarding; tenderness, hernia (b/l inguinal) Genital/Rectal: No normal genital exam (scrotal enlarged, herniation b/l); tenderness Back: no CVA tenderness, no vertebral tenderness Extremities: non-tender, no pedal edema Neurologic/Psychiatric: alert, oriented x 3 Skin: warm/dry; No pallor, No rash Lymphatic: no adenopathy (inguinal) Data Review Labs Laboratory Tests 08/22/22 19:15: White Blood Count 6.9, Red Blood Count 5.50, Hemoglobin 16.6, Hematocrit 48, Mean Corpuscular Volume 88, Mean Corpuscular Hemoglobin 30, Mean Corpuscular Hemoglobin Concent 35, Red Cell Distribution Width 12.9, Platelet Count 181, Mean Platelet Volume 10.4, Immature Granulocyte % (Auto) 0, Neutrophils (%) (Auto) 59, Lymphocytes (%) (Auto) 23, Monocytes (%) (Auto) 16H, Eosinophils (%) (Auto) 2, Basophils (%) (Auto) 1, Neutrophils # (Auto) 4.0, Lymphocytes # (Auto) 1.6, Monocytes # (Auto) 1.1H, Eosinophils # (Auto) 0.1, Basophils # (Auto) 0.0, Immature Granulocyte # (Auto) 0.0, Sodium Level 135, Potassium Level 4.0, Chloride Level 96L, Carbon Dioxide Level 27, Anion Gap 12, Blood Urea Nitrogen 44H, Creatinine 1.11, Estimat Glomerular Filtration Rate 71, BUN/Creatinine Ratio 40, Glucose Level 94, Lactic Acid Level 1.16, Calcium Level 8.9, Corrected Calcium 8.9, Total Bilirubin 2.1H, Aspartate Amino Transf (AST/SGOT) 19, Alanine Aminotransferase (ALT/SGPT) 18, Alkaline Phosphatase 50, Total Protein 6.7, Albumin 4.0 08/22/22 19:26: Urine Color ORANGE, Urine Clarity CLEAR, Urine pH 6.0, Urine Specific Eastman 1.020, Urine Protein TRACEH, Urine Glucose (UA) NEGATIVE, Urine Ketones 2+H, Urine Nitrite NEGATIVE, Urine Bilirubin 1+H, Urine Urobilinogen 2.0, Urine Leukocyte Esterase NEGATIVE, Urine RBC (Auto) TRACE-IH, Urine RBC 0-2, Urine WBC NONE, Urine Squamous Epithelial Cells RARE, Urine Crystals NONE, Urine Bacteria TRACE, Urine Casts PRESENT, Urine Hyaline Casts RARE, Urine Mucus SMALLH, Urine Culture Indicated NO 08/23/22 05:50: White Blood Count 7.1, Red Blood Count 4.98, Hemoglobin 15.0, Hematocrit 44, Mean Corpuscular Volume 88, Mean Corpuscular Hemoglobin 30, Mean Corpuscular Hemoglobin Concent 34, Red Cell Distribution Width 12.9, Platelet Count 156, Mean Platelet Volume 10.7, Immature Granulocyte % (Auto) 0, Neutrophils (%) (Auto) 64, Lymphocytes (%) (Auto) 20, Monocytes (%) (Auto) 14H, Eosinophils (%) (Auto) 1, Basophils (%) (Auto) 1, Neutrophils # (Auto) 4.5, Lymphocytes # (Auto) 1.4, Monocytes # (Auto) 1.0, Eosinophils # (Auto) 0.1, Basophils # (Auto) 0.1, Immature Granulocyte # (Auto) 0.0, Sodium Level 136, Potassium Level 3.7, Chlori de Level 101, Carbon Dioxide Level 24, Anion Gap 11, Blood Urea Nitrogen 37H, Creatinine 0.97, Estimat Glomerular Filtration Rate 84, BUN/Creatinine Ratio 38, Glucose Level 81, Calcium Level 8.3L Assessment/Plan Assessment/Plan Assessment/Plan Bilateral inguinal herniation * NPO since midnight * Patient and family agreeable to hernia repairs * Take into double inguinal hernia repair surgery today FROILAN CARTER DO 08/23/22 1424: History of Present Illness History of Present Illness Time Seen by Provider: 11:31 History of Present Illness Surgery asked to admit pt regarding Small Bowel Obstruction. HPI per ED: Patient is a 72-year-old male who is autistic with Marfan syndrome who presents ED with lower abdominal pain. Abdominal pain since Monday. Dull achy pain constant. History of inguinal hernia repair by Dr. Carter general surgery in 2019. Since Monday patient has had intermittent vomiting. Has had no bowel movement since last Monday. Currently on a low oral laxative that he takes daily. Increase his oral laxative without much improvement. Decreased appetite. Pressure difficulty with urination. Does have a scheduled follow-up with Dr. Carter tomorrow. Denies fever, chills, chest pain, cough or shortness of breath. When I saw pt his family was in the room, he was stating he was "ready to go". He was not really complaining of pain and no vomiting since midnight. Allergies and Home Medications Allergies Coded Allergies: No Known Drug Allergies (Unverified , 09/06/19) Patient Home Medication List Home Medication List Reviewed: Yes Aspirin (Aspirin) 81 Mg Tab.chew, 81 MG PO DAILY, (Reported) Entered as Reported by: YONATAN MENDES on 09/06/19 1101 Last Action: Reviewed Cetirizine HCl (Zyrtec) 10 Mg Tablet, 10 MG PO DAILY, (Reported) Entered as Reported by: ZIGGY ACUNA on 10/03/18 0945 Last Action: Reviewed Cholecalciferol (Vitamin D3) (Vitamin D3) 25 Mcg (1000 Unit) Tablet, 25 MCG PO DAILY, (Reported) Entered as Reported by: MERCEDES DELGADO on 08/23/22 1131 Last Action: Reviewed Docusate Sodium (Stool Softener) 100 Mg Tablet, 200 MG PO HS, (Reported) Entered as Reported by: YONATAN MENDES on 09/06/19 1101 Last Action: Reviewed Metoprolol Succinate (Metoprolol Succinate) 25 Mg Tab.er.24h, 25 MG PO DAILY, (Reported) Entered as Reported by: YONATAN MENDES on 09/06/19 1114 Last Action: Reviewed Ondansetron HCl (Ondansetron HCl) 4 Mg Tablet, 4 MG PO Q8H PRN for NAUSEA/VOMITING-2ND LINE, (Reported) Entered as Reported by: MERCEDES DELGADO on 08/23/22 1131 Last Action: Reviewed Simvastatin (Simvastatin) 40 Mg Tablet, 40 MG PO HS, (Reported) Entered as Reported by: YONATAN MENDES on 09/06/19 1101 Last Action: Reviewed Discontinued Medications Cholecalciferol (Vitamin D3) (Vitamin D3) 1,250 Mcg Capsule, 1,250 MCG PO DAILY, (Reported) Discontinued Reason: Prescription changed Entered as Reported by: YONATAN MENDES on 09/06/19 1101 Hydrocodone/Acetaminophen (Hydrocodone/Acetaminophen 5 MG/325 MG TAB) 1 Each Tablet, 1 TAB PO Q6H Discontinued Reason: No Longer Taking Prescribed by: FROILAN CARTER on 09/11/19 1018 Last Action: Discontinued Past Imhbbkt-Vxkgko-Snsjzj Hx Patient Social History Smoking Status: Never a Smoker Surgeries History of Surgeries: Yes Surgeries: Abdominal (b/l inguinal hernia repair) Respiratory History of Respiratory Disorde: No Cardiovascular History of Cardiac Disorders: Yes Cardiac Disorders: Aneurysm, High Cholesterol, Hypertension Neurological History of Neurological Disord: Yes (Autism) Genitourinary History of Genitourinary Disor: No Gastrointestinal History of Gastrointestinal Di: Yes Musculoskeletal History of Musculoskeletal Dis: Yes (Marfans) Endocrine History of Endocrine Disorders: No HEENT History of HEENT Disorders: Yes (glasses) Hearing Impairment: Denies Cancer History of Cancer: No Psychosocial History of Psychiatric Problem: Yes (autism) Integumentary History of Skin or Integumenta: No Family Medical History Significant Family History: Other Conditions/Hx (Marfans) Review of Systems-General Constitutional: No chills, No diaphoresis, No dizziness, No fever EENTM: No blurred vision, No hoarseness, No epistaxis Respiratory: No cough, No short of breath Cardiovascular: No chest pain, No edema, No palpitations Gastrointestinal: RLQ (pain/pressure), LLQ (pain/pressure), abdominal pain, constipation, nausea, vomiting Genitourinary: dysuria, pain (in scrotal sack b/l) Musculoskeletal: No muscle pain, No muscle weakness Skin: No dryness, No rash Psychiatric/Neurological: Denies Headache, Denies Tremors; Other (Autism ) Physical Exam-General Problems Physical Exam General Appearance: no apparent distress, thin, other (Marfanoid habitus) Eyes: Bilateral Eye PERRL, Bilateral Eye EOMI HEENT: pharynx normal; No scleral icterus (R), No scleral icterus (L) Neck: non-tender, supple Respiratory: chest non-tender, lungs clear, normal breath sounds, no respiratory distress, no accessory muscle use Cardiovascular: no edema, no murmur, bradycardia, other (mention of aortic anuerism, sees Dr. Costa) Gastrointestinal: non tender (pt did not have any abdominal pain when I palpated), soft, no organomegaly, no pulsatile mass; No distended, No guarding; hernia (b/l inguinal) Rectal: deferred Genital/Rectal: normal genital exam (scrotal enlarged, herniation b/l) Back: no CVA tenderness, no vertebral tenderness Extremities: non-tender, no pedal edema Neurologic/Psychiatric: alert Skin: warm/dry; No pallor, No rash Lymphatic: no adenopathy (neck, axilla or groin) Data Review Radiology Date of Exam:08/22/22 CT ABDOMEN/PELVIS W PROCEDURE: CT abdomen and pelvis with contrast. TECHNIQUE: Multiple contiguous axial images were obtained through the abdomen and pelvis after administration of intravenous contrast. Auto Exposure Controls were utilized during the CT exam to meet ALARA standards for radiation dose reduction. All CT scans use one or more of the following dose optimizing techniques: automated exposure control, MA and/or KvP adjustment based on patient size and exam type or iterative reconstruction. INDICATION: Abdominal pain, new hernias. FINDINGS: The lung bases are clear. Liver appears normal. Gallbladder appears normal. Pancreas is normal. Spleen is unremarkable. Adrenals appear normal. Kidneys are unremarkable. There are bilateral inguinal hernias. There are dilated small bowel loops in the left inguinal hernia suggesting obstruction. Small bowel loops in the right inguinal hernia are decompressed. There is colonic diverticulosis. Urinary bladder is unremarkable. There is no intraperitoneal free air or free fluid. IMPRESSION: Incarcerated bowel loops and bilateral inguinal hernias with evidence of obstruction in the small bowel and the left inguinal hernia. Dictated by: Dictated on workstation # [id number] Dict: 08/22/222020 Trans: 08/22/222030 [facility] [id number] Interpreted by: KIRT ZULETA MD Electronically signed by: KIRT ZULETA MD 08/22/222030 Assessment/Plan Assessment/Plan Assessment/Plan Partial Small bowel obstruction - secondary to incarcerated B/L inguinal hernias Bilateral Recurrent Incarcerated inguinal hernias * NPO since midnight, pain control, IV fluids, IV ABX just prior to OR * I talked to family about the surgery, we talked about going Laparoscopically because the last time it had been done open. Most likely the previous repair failed because of Marfan's, which makes the tissue very loose. I talked to them about the fact that this could happen again, because of Marfan's. We went over risks and complications not limited to pain, bleeding, scar, damage to bowel and need for further procedure. They understood and all questions answered to their satisfaction. Will get consent Marfan's Syndrome Autism Supervisory-Addendum Brief Verification & Attestation Participated in pt care: history, MDM, physical Personally performed: exam, history, MDM, supervision of care Care discussed with: Medical Student Procedures: n/a Verification and Attestation of Medical Student E/M Service A medical student performed and documented this service. I then reviewed and verified all information documented by the medical student and made modifications to such information, when appropriate. I personally performed a physical exam, medical decision making and then discussed any differences between the notes and made revisions as necessary to create one note. Froilan Carter , 08/23/22 , 14:30 DONATO SIMMONS Aug 23, 2022 08:22 FROILAN CARTER DO Aug 23, 2022 14:24
[2022-08-23] MEDS ORDERED: LACTATED RINGERS 1,000 ML IV PRN (10:45)
[2022-08-23] MEDS ORDERED: morphine INJ 4 MG/ML 1 ML (VIAL/SYRINGE) IVP NR (11:00)
[2022-08-23] MEDS ORDERED: morphine INJ 10 MG/ML 1ML (SYR OR VIAL) IVP NR (11:00)
[2022-08-23] MEDS ORDERED: ONDA-105 PO (11:31)
[2022-08-23] MEDS ORDERED: CHOL-34 PO (11:31)
[2022-08-23] MEDS ORDERED: GLYCOPYRROLATE 0.2 MG/ML (ROBINUL) 2 ML VIAL ONE (12:02)
[2022-08-23] MEDS ORDERED: ONDANSETRON 4 MG/2 ML (SDV) Z0FRAN ONE (12:02)
[2022-08-23] MEDS ORDERED: LIDOCAINE PF 2% 5 ML (XYLOCAINE) VIAL ONE (12:02)
[2022-08-23] MEDS ORDERED: proPOfol 200 MG/20 ML (DIPRIVAN) VIAL IV ONE (12:02)
[2022-08-23] MEDS ORDERED: fentaNYL INJ 100 MCG/2 ML AMP ONE (12:02)
[2022-08-23] MEDS ORDERED: NEOSTIGMINE (BLOXIVERZ ) 1 MG/1ML 10 ML VIAL ONE (12:04)
[2022-08-23] MEDS ORDERED: ROCURONIUM 50 MG/5 ML (ZEMURON) VIAL IV ONE (12:04)
[2022-08-23] MEDS: LACTATED RINGERS 1,000 ML IV PRN ×3 (16:29→19:24)
[2022-08-23] MEDS ORDERED: ceFAZolin INJECTION 1,000 MG ONE (16:46)
[2022-08-23] MEDS ORDERED: MEPERIDINE (DEMEROL) INJ 50 MG/ML IVP ONE (19:45)
[2022-08-23] MEDS ORDERED: morphine INJ 10 MG/ML 1ML (SYR OR VIAL) IVP ONE (19:45)
[2022-08-23] MEDS ORDERED: fentaNYL INJ 100 MCG/2 ML AMP IVP ONE (19:45)
[2022-08-23] MEDS ORDERED: ONDANSETRON 4 MG/2 ML (SDV) Z0FRAN IVP PRN (19:45)
[2022-08-23] MEDS ORDERED: HYDROmorphone 2 MG/ML VIAL (DILAUDID) IV ONE (19:45)
--- NOTE | 2022-08-23 19:47 | Progress Note-Post Operative ---
Post-Operative Progess Note Surgeon (s)/Gum Cook (s) Surgeon FROILAN CARTER DO Gum Cook: Ric Pre-Operative Diagnosis BILATERAL INGUINAL HERNIAS Post-Operative Diagnosis Bilateral recurrent incarcerated inguinal hernia Procedure & Operative Findings Date of Procedure 08/23/22 Procedure Performed/Findings Laparoscopic Bilateral inguinal herniarraphy with mesh placement - robot After informed consent was obtained, the patient was brought to the operating room and placed on the operating table in a supine position. He was sterilely prepped and draped in a normal fashion. Local lidocaine was used to infiltrate the skin above the umbilicus. I made an incision with #11 blade, carried down to the skin into subcutaneous tissue and then deepened down the subcutaneous tissue with Bovie electrocautery down to the fascia. Fascia was incised with Bovie electrocautery and bluntly entered the abdomen, swept a finger around, placed 0 Vicryl [id number] suture and placed limited trocar port under direct visualization. Created pneumoperitoneum, able to visualize the hernia and took a picture of this and then placed two 8 mm ports about 10 cm on either side of the midline port using a local lidocaine, 11 blade for stab incision and then advanced the robotic port under direct visualization. Once this was in, I then placed the patient in Trendelenburg and then placed the working instruments, the fenestrated bipolar and the scissors. Looked on the left side and saw small bowel trapped in inguinal hernia. I could see a direct hernia defect on the right side. I carefully pushed the intestine out, it came out easily but there was some mildly serosanguinous fluid that came out as well. Next, I came across the peritoneum approximately 8 cm away from the hernia defect, going across laterally starting lateral about 17cm and cutting toward the median umbilical ligament. I then carefully dissected the visceral peritoneum away and down and then in the midline, went through the parietal side and dissected down to the pubic tubercle, dissecting this down carefully pushing the peritoneum away, I was able to then visualize the pubic tubercle and Rashaun's ligament. I went 2 cm posterior and at this point, we then had a critical view of the dissection, able to dissect 2 cm across the midline to the right side, 2 cm posterior to the Rashaun's ligament, able to then parietalize the vas deferens and spermatic vessels right at the groove between Rashaun's and iliac vein and able to dissect, make sure there was no peritoneum between those two, able to see the indirect hernia space, took a picture of this, looked at the femoral space (no hernia seen). Then I carefully teased out the hernia sac and could visualize the indirect hernia space. Next I looked on the cord and cord structures. I could clearly see the inguinal canal and the indirect space. Next I carried the posterior lateral dissection all the way out and then placed a 12 x 17 Midwieght Bard 3DMax mesh. It laid in nicely, covered the hernia defect and the rest of the area. It was above the peritoneum, sutured it at the pubic tubercle with a 3-0 Vicryl suture and then tied this off laterally to hold the mesh in place. This appeared to lay in very nicely. Next I turned my attention to the left side and carried the dissection of peritoneum continuing to come across the peritoneum approximately 8 cm away from the hernia defect. Starting medially and going out laterally about 16cm and cutting toward the median umbilical ligament. I then carefully dissected the visceral peritoneum away and down and then in the midline, went through the parietal side and dissected down to the pubic tubercle, dissecting this down from the right side carefully pushing the peritoneum away, I was able to then visualize the pubic tubercle and Rashaun's ligament. I went 2 cm posterior and at this point, we then had a critical view of the dissection, able to dissect 2 cm across the midline to the right side, 2 cm posterior to the Rashaun's ligament, able to then parietalize the vas deferens and spermatic vessels right at the groove between Rashaun's and iliac vein and able to dissect, make sure there was no peritoneum between those two, able to see the indirect hernia space, took a picture of this, looked at the femoral space (no hernia seen). Then I carefully teased out the hernia sac and could visualize the indirect hernia space. Next I looked on the cord and cord structures. I could clearly see the inguinal canal and the indirect space. Next I carried the posterior lateral dissection all the way out and then placed a 10 x 16 Midwieght Bard 3DMax mesh. It laid in nicely, cov ered the hernia defect and the rest of the area. It was above the peritoneum, sutured it at the pubic tubercle with a 3-0 Vicryl suture and then tied this off laterally to hold the mesh in place. This appeared to lay in very nicely. I then brought down the pneumoperitoneum to about 8 mmHg and then started closing the peritoneum. Started laterally and used a 2- 0 V-lock barbed suture to start a running stitch to close the peritoneum; did this on both sides. I then used a 3-0 Vicryl to close off a couple of holes in the peritoneum from the hernia. This was closed nicely, took a picture of the closure at this point, then removed both needles had switched to a suture driver helper from the scissors. The patient was then placed back supine, removed all ports under direct visualization, allowed pneumoperitoneum to escape and then closed the supraumbilical incision, closing the fascia with 0 Vicryl suture previously placed. Copiously irrigated all incisions and then closed the two small 8 mm incisions with two interrupted 4-0 undyed Monocryl subcuticular stitches and closed the supraumbilical incision with three interrupted undyed Monocryl subcuticular stitch. Area was cleaned and dried. Dermabond was placed. The patient tolerated the procedure. The sponge, instrument and needle counts were correct at the end of the case. Dr. Larios assisted during this surgery by making incisions, closing incisions, helping to identify anatomy and passing/retrieving suture and needles. Anesthesia Type GET Estimated Blood Loss Estimated blood loss (mL): scant Specimens/Packing Specimens Removed none FROILAN CARTER DO Aug 23, 2022 19:47
[2022-08-23] MEDS ORDERED: ACHD5005 PO (19:48)
--- NOTE | 2022-08-23 19:49 | Discharge Inst-Surgical ---
Discharge Inst-Surgical Depart Medication/Instructions New, Converted or Re-Newed RX: Transmitted to Pharmacy Patient Instructions Follow up Appt: Make appointment for 1 week. [phone] Instructions: No lifting greater than 20 pounds. No strenuous activity. May shower in 24 hours, no tub bath or soaking. Use incentive spirometer at home as directed. No Smoking Skin/Wound Care: May remove bandages in am. You need to leave the Dermabond on incision it will fall off on it's own. Symptoms to Report: Appetite Changes, Extremity Discoloration, Numbness/Tingling, Swelling Increased, Bleeding Excessive, Eyesight Changes, Pain Increased, Urine Color Change, Constipation(Persistent), Fever over 101 degree F, Pain/Pressure in chest, Urinating Difficulty, Cough Up/Vomit Blood, Heart Beat Irreg/Pounding, Pain/Pressure in jaw, Cramps in feet or legs, Lightheadedness, Pain/Pressure in shoulder, Diarrhea(Persistent), Memory Changes Suddenly, Questions/Concerns, Weight gain consecutive days, Dizziness/Fainting, Nausea/Vomiting, Shortness of Breath, Weight gain over 2 pounds If questions or concerns contact your physician Or seek help at emergency department. Activity Activity as Tolerated: Yes Activity Instructions: Avoid Stress to Incision Driving Instructions: No Driving/Refer to Dr. Aguilar Discharge Diet: No Restrictions Diet After 24 Hours: Clear Liquid if Nauseous If Any Problems/Questions/Issu: Contact Your Physician, Go to Emergency Room Skin/Wound Care Infection Signs and Symptoms: Increased Redness, Foul Odor of Wound, Increased Drainage, Skin Itchy or Has a Rash, Increased Swelling, Temperature Above 101 F Bathing Instructions: Shower Stitches/Floyd/Dermabond Dis: FROILAN Chau DO Aug 23, 2022 19:49
[2022-08-24 04:00] VITALS: BP 113/77
[2022-08-24] MEDS: NS IV 1000 ML 1,000 ML IV SCH (07:18)
[2022-08-24 07:42] VITALS: BP 130/78
--- NOTE | 2022-08-24 07:53 | Progress Note - Surgery ---
Subjective Date Seen by a Provider: Aug 24, 2022 Time Seen by a Provider: 07:00 Subjective/Events-last exam Patient is awake and alert, laying in bed. He reports that he has no pain this morning, as well as no N/V. He is excited to show that his hernia has been repaired, and that his scrotal edema has greatly improved from yesterday. Today the patient's only complaint is that he is hungry. Patient has no other complaints. Review of Systems General: No Chills, No Night Sweats HEENT: No Visual Changes, No Eye Pain Pulmonary: No Dyspnea, No Cough Cardiovascular: No: Chest Pain, Palpitations Gastrointestinal: No: Nausea, Vomiting, Abdominal Pain Genitourinary: No Dysuria, No Hematuria Musculoskeletal: No: neck pain, back pain Neurological: No: Weakness, Numbness Focused Exam Lactate Level 08/22/22 19:15: Lactic Acid Level 1.16 Objective Exam Vital Signs Date Time Temp Pulse Resp B/P (MAP) Pulse Ox O2 Delivery O2 Flow Rate FiO2 08/24/22 07:42 36.8 87 20 130/78 (95) 94 Room Air 08/24/22 04:00 36.3 78 16 113/77 (89) 94 Room Air 08/23/22 23:26 36.5 67 18 156/72 (100) 97 Room Air 08/23/22 20:39 36.5 86 20 124/76 (92) 92 Room Air 08/23/22 20:35 Room Air 08/23/22 20:30 Room Air 08/23/22 20:30 36.7 20 133/67 (89) 94 Room Air 08/23/22 20:20 20 130/67 (88) 94 Room Air 08/23/22 20:15 Room Air 08/23/22 20:10 20 133/67 (89) 95 Room Air 08/23/22 20:00 Room Air 08/23/22 20:00 20 121/68 (85) 95 Room Air 08/23/22 19:50 20 120/82 (95) 96 OxyMask 3.00 08/23/22 19:45 OxyMask 4.00 08/23/22 19:40 20 121/68 (85) 98 OxyMask 4.00 08/23/22 19:37 OxyMask 6.00 08/23/22 19:37 36.7 20 160/100 (120) 98 OxyMask 6.00 08/23/22 15:42 36.7 56 18 121/63 (82) 96 Room Air 08/23/22 11:48 36.6 56 18 126/68 (87) 96 Room Air 08/23/22 09:00 Room Air 08/23/22 07:54 36.6 54 18 118/63 (81) 93 Room Air I & O 08/24/22 07:00 Intake Total 2150 ml Output Total 60 ml Balance 2090 ml Capillary Refill : Less Than 3 Seconds General Appearance: No Apparent Distress, Thin, Other (marfanoid habitus) HEENT: PERRL/EOMI, Moist Mucous Membranes Neck: Non Tender, Supple Respiratory: Chest Non Tender, Lungs Clear, Normal Breath Sounds, No Accessory Muscle Use, No Respiratory Distress Cardiovascular: Regular Rate, Rhythm, No Edema Peripheral Pulses: 2+ Dorsalis Pedis (R), 2+ Left Dors-Pedis (L), 2+ Radial Pulses (R), 2+ Radial Pulses (L) Gastrointestinal: non tender, soft, hernia, other (Incisions clean, dry and intact) Extremity: Normal Capillary Refill, Non Tender, No Calf Tenderness, No Pedal Edema Neurologic/Psychiatric: Alert, Normal Mood/Affect, Other (Intellectual disability) Skin: Normal Color, Warm/Dry Lymphatic: No Adenopathy (cervical) Assessment/Plan Assessment/Plan Assessment/Plan S/P b/l inguinal hernia repair with mesh, done laparoscopically Marfan's Syndrome Autism Incisions c/d/i Patient reports their pain is well controlled, denies N/V Can likely be discharged today DEBBIE PACKER Aug 24, 2022 07:53
[2022-08-24 09:38] VITALS: BP 130/78
--- NOTE | 2022-08-24 10:41 | Anesthesia-General Post-Op ---
General Patient Condition Mental Status/LOC: Same as Preop Cardiovascular: Satisfactory Nausea/Vomiting: Absent Respiratory: Satisfactory Pain: Controlled Complications: Absent Post Op Complications Complications None Follow Up Care/Instructions Patient Instructions None needed. Anesthesia/Patient Condition Patient Condition Patient is doing well, no complaints, stable vital signs, no apparent adverse anesthesia problems. No complications reported per nursing. JOVANY PINZON CRNA Aug 24, 2022 10:41
== END 2022-08-24 09:41 | disposition home or self-care (01) ==
LOC: EDUNIT# 18:40 → ER 18:42 → 4TH 21:52
PROVIDERS: ADMIT Surgery; ATTEND Surgery
DX: K40.01 Bilateral inguinal hernia, with obstruction, without gangrene, recurrent (principal); F84.0 Autistic disorder; Q87.40 Marfan syndrome, unspecified; K56.600 Partial intestinal obstruction, unspecified as to cause
CPT/HCPCS: 36415; 74177; 80048; 80053; 81000; 83605; 85025; 87081; 96375